=== PATIENT | female | born 1995 | race Caucasian/White ===

== ENCOUNTER → 2018-05-20 | Outpatient (CLI) | payer OTHER ==
[~2018-05-20] MED LIST: CHOL100058 PO; CHOL200074 PO; DOCU-416 PO; DULO30CA35 PO; IBUP-136 PO; LACT10SO82 PO; METH479P3 PO; MULT-865 PO; OMEG300C PO; OXYC-865 PO; POLY17PO25 PO
== END ==
LOC: LAB 13:15
PROVIDERS: ATTEND Internal Medicine Endocrinology, Diabetes & Metabolism
DX: E05.90 Thyrotoxicosis, unspecified without thyrotoxic crisis or storm (principal)
CPT/HCPCS: 36415; 84439; 84443; 84481

== ENCOUNTER → 2018-06-10 | Outpatient (CLI) | payer OTHER ==
--- NOTE | 2018-06-10 08:52 | RADIOLOGY IMAGING REPORT ---
FACILITY: [facility] PATIENT NAME: Renetta Medley : 1995 MR: [id number] V: [id number] EXAM DATE: ORDERING PHYSICIAN: TERESA BRAGA TECHNOLOGIST: Location: [facility] - [place] Patient: Renetta Medley : 1995 Visit/Account:[id number] Date of Sevice: 06/10/2018 Thyroid ultrasound. HISTORY: Thyroid nodule, previous biopsy. COMPARISON: Ultrasound-guided thyroid biopsy 08/04/2014. The right thyroid lobe measures 5.2 cm in length. A five mm heterogeneous nodule is present in the u pper pole of the right thyroid lobe. A 9 mm complex cystic nodule is present in the lower pole of th e right thyroid lobe. A 6 mm complex cystic nodule is present in the lower pole of the right thyroid lobe. The thyroid isthmus measures 2 mm in thickness. The left thyroid lobe measures 4.7 cm in length. A 1.4 cm complex cystic nodule is present in the lo wer pole of the left thyroid lobe. Several other small hypoechoic nodules and cysts measuring less than 5 mm in diameter are scattered i n the thyroid gland bilaterally. The previous study does not include measurements of the thyroid nodules. The pathology report from t he previous biopsy is not currently available for review. IMPRESSION: Multinodular goiter. Report Dictated By: Dale Abarca MD at 06/10/2018 8:41 AM Report E-Signed By: Dale Abarca MD at 06/10/2018 8:47 AM WSN:[id number]
== END ==
LOC: US 00:36
PROVIDERS: ATTEND Internal Medicine Endocrinology, Diabetes & Metabolism
DX: E04.2 Nontoxic multinodular goiter (principal); E04.1 Nontoxic single thyroid nodule
CPT/HCPCS: 76536